=== PATIENT | female | born 1955 | race Hispanic/Latino ===

== ENCOUNTER 2019-04-07 11:57 | Emergency (ER) | payer SELFPAY ==
[2019-04-07 12:37] LABS: #Eosinphils 0.1 thou/uL (0.0-0.7); #Lymphocytes 1.7 thou/uL (1.20-3.40); #Monocytes 0.4 thou/uL (0.11-0.59); #Neutrophils 4.4 thou/uL (1.40-6.50); %Basophils 0.4 % (0.0-1.0); %Lymphocytes 25.9 % (21.0-51.0); %Monocytes 6.4 % (0.0-10.0); %Neutrophils 66.4 % (42.0-75.0); Hemoglobin 14.3 g/dL (12.0-16.0); Mean Corpuscular HGB CONC 33.8 g/dL (32.0-36.0); Mean Corpuscular Volume 85.7 fL (78.0-98.0); Mean Platelet Volume 7.3 fL (7.4-10.4); Platelet Count 245 thou/uL (130-400); RBC Distribution Width 12.3 % (11.5-14.5); Red Blood Cell (RBC) Count 4.93 mill/uL (4.20-5.40); White Blood Cell (WBC) Count 6.7 thou/uL (4.8-10.8)
[2019-04-07 12:44] LABS: Prothrombin Time 13.2 SEC (12.0-14.7)
[2019-04-07] MEDS ORDERED: ISOVUE-370 76%-LOCM 1 ML ONE (12:48)
[2019-04-07 12:58] LABS: ALT (SGPT) 16 U/L (8-55); AST (SGOT) 19 U/L (5-34); Alkaline Phosphatase 59 U/L (40-150); Anion Gap 9 mmol/L (10-20); BUN (Urea Nitrogen) 11 mg/dL (9.8-20.1); Bilirubin, Total 0.2 mg/dL (0.2-1.2); Calc. Creatinine Clearance 0 mL/min (70-130); Calcium 9.5 mg/dL (7.8-10.44); Carbon Dioxide 29 mmol/L (23-31); Chloride 105 mmol/L (98-107); Estimated GFR-MDRD 61; Glucose 94 mg/dL (80-115); Sodium 139 mmol/L (136-145)
--- NOTE | 2019-04-07 14:10 | CT ---
EXAM: CT abdomen and pelvis with IV contrast PROVIDED CLINICAL HISTORY: Abdominal pain COMPARISON: None FINDINGS: The visualized lung bases are free of significant opacity. The solid abdominal organs demonstrate an unremarkable CT appearance. Changes of prior cholecystectom y are seen. There is no bowel dilatation, inflammatory fat stranding, free fluid or free air apparent. There is n o evidence for appendicitis. No regional lymph node enlargement apparent. The regional major vascular structures appear unremarkab le. The osseous structures demonstrate no concerning lytic or blastic lesions. IMPRESSION: No evidence for an acute process.
== END 2019-04-07 15:32 | disposition home or self-care (01) ==
LOC: ERS 11:57
DX: K92.1 Melena (principal)
CPT/HCPCS: 36415; 74177; 80053; 82274; 83605; 85025; 85610; 86850; 86900; 86901; 96360; Q9966